=== PATIENT | male | born 1995 | race Two or more races ===

== ENCOUNTER 2021-11-05 23:38 | Emergency (ER) | payer OTHER ==
[~2021-11-05] VITALS: Ht 175.3 cm; Wt 63.5 kg
[2021-11-06] MEDS ORDERED: CIPRO500 MG PO (04:37)
[2021-11-06] MEDS ORDERED: ZYNCOF 20-400120 ML PO (04:37)
== END 2021-11-06 04:45 ==
LOC: ER 23:38
DX: R10.9 Unspecified abdominal pain (principal); R30.0 Dysuria; R05.9 Cough, unspecified